=== PATIENT | male | born 1955 | race American Indian/Alaskan Native ===

== ENCOUNTER 2017-08-22 09:02 | Emergency (ER) | payer SELFPAY ==
[2017-08-22 09:52] VITALS: BP 139/84
--- NOTE | 2017-08-22 11:08 | Emergency Department Report ---
- General Chief complaint: Extremity Injury, Upper Stated complaint: WARTS ON HAND BOTH Time Seen by Provider: 08/22/17 10:46 Source: patient Mode of arrival: Ambulatory Limitations: No Limitations - History of Present Illness Initial comments: This is a 62-year-old male nontoxic, well nourished in appearance, no acute signs of distress presents to the ED with c/o of bilateral rash that is scaly and itching 1 year of the hands. 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 Patient denies any fever, chills, nausea, vomiting, chest pain, short of breath, headache, stiff neck, numbness or tingling. Patient denies any joint redness or joint swelling. Denies any allergies or significant past medical history. MD complaint: rash -: year(s) (1) Location: L hand, R hand Severity: mild Severity scale (0 -10): 0 Consistency: constant Improves with: none Worsens with: none Associated symptoms: itching Treatments Prior to Arrival: none - Related Data Previous Rx's Medication Instructions Recorded Last Taken Type Clotrimazole 1% [Lotrimin 1%] 15 gm TP BID #1 tube 08/22/17 Unknown Rx diphenhydrAMINE [Benadryl CAP] 25 mg PO Q6HR PRN #20 capsule 08/22/17 Unknown Rx Allergies Allergy/AdvReac Type Severity Reaction Status Date / Time No Known Allergies Allergy Unverified 08/22/17 09:48 Abscess Boil HPI - HPI Chief Complaint: Extremity Injury, Upper Stated Complaint: WARTS ON HAND BOTH Time Seen by Provider: 08/22/17 10:46 Home Medications: Previous Rx's Medication Instructions Recorded Last Taken Type Clotrimazole 1% [Lotrimin 1%] 15 gm TP BID #1 tube 08/22/17 Unknown Rx diphenhydrAMINE [Benadryl CAP] 25 mg PO Q6HR PRN #20 capsule 08/22/17 Unknown Rx Allergies/Adverse Reactions: Allergies Allergy/AdvReac Type Severity Reaction Status Date / Time No Known Allergies Allergy Unverified 08/22/17 09:48 ED Review of Systems ROS: Stated complaint: WARTS ON HAND BOTH Other details as noted in HPI Constitutional: denies: chills, fever Eyes: denies: eye pain, eye discharge, vision change ENT: denies: ear pain, throat pain Respiratory: denies: cough, shortness of breath, wheezing Cardiovascular: denies: chest pain, palpitations Endocrine: no symptoms reported Gastrointestinal: denies: abdominal pain, nausea, diarrhea Genitourinary: denies: urgency, dysuria Musculoskeletal: denies: back pain, joint swelling, arthralgia Skin: denies: rash, lesions Neurological: denies: headache, weakness, paresthesias Psychiatric: denies: anxiety, depression Hematological/Lymphatic: denies: easy bleeding, easy bruising ED Past Medical Hx - Past Medical History Previous Medical History?: No Additional medical history: ETOH abuse - Surgical History Past Surgical History?: No - Social History Smoking Status: Current Every Day Smoker Substance Use Type: Marijuana - Medications Home Medications: Home Medications Medication Instructions Recorded Confirmed Last Taken Type Clotrimazole 1% [Lotrimin 1%] 15 gm TP BID #1 tube 08/22/17 Unknown Rx diphenhydrAMINE [Benadryl CAP] 25 mg PO Q6HR PRN #20 capsule 08/22/17 Unknown Rx ED Physical Exam - General Limitations: No Limitations General appearance: alert, in no apparent distress - Head Head exam: Present: atraumatic, normocephalic - Eye Eye exam: Present: normal appearance - ENT ENT exam: Present: mucous membranes moist - Neck Neck exam: Present: normal inspection - Respiratory Respiratory exam: Present: normal lung sounds bilaterally. Absent: respiratory distress - Cardiovascular Cardiovascular Exam: Present: regular rate, normal rhythm. Absent: systolic murmur, diastolic murmur, rubs, gallop - GI/Abdominal GI/Abdominal exam: Present: soft, normal bowel sounds - Rectal Rectal exam: Present: deferred - Extremities Exam Extremities exam: Present: normal inspection - Back Exam Back exam: Present: normal inspection - Neurological Exam Neurological exam: Present: alert, oriented X3 - Psychiatric Psychiatric exam: Present: normal affect, normal mood - Skin Skin exam: Present: warm, dry, intact, normal color, rash, other (scaly rash with erythema and white colored to bilateral palms) ED Course Vital Signs 08/22/17 09:49 Temperature 98.7 F Pulse Rate 60 Respiratory 16 Rate Blood Pressure 139/84 O2 Sat by Pulse 98 Oximetry - Reevaluation(s) Reevaluation #1: 06/06/18 11:08 Patient is speaking in full sentences with no signs of distress noted. Critical care attestation.: If time is entered above; I have spent that time in minutes in the direct care of this critically ill patient, excluding procedure time. ED Disposition Clinical Impression: Tinea corporis Disposition: DC-01 TO HOME OR SELFCARE Is pt being admited?: No Does the pt Need Aspirin: No Condition: Stable Instructions: Tinea Corporis (ED) Additional Instructions: Follow-up with a primary care doctor in 3-5 days or if symptoms worsen and continue return to emergency room as soon as possible. Prescriptions: Clotrimazole 1% [Lotrimin 1%] 15 gm TP BID #1 tube diphenhydrAMINE [Benadryl CAP] 25 mg PO Q6HR PRN #20 capsule PRN Reason: Itching Referrals: PRIMARY CARE, [Primary Care Provider] - 3-5 Days JERMAIN PABLO MD [Staff Physician] - 3-[address] [facility] [Outside] - 3-5 Days [facility] [Outside] - 3-5 Days Forms: Work/School Release Form(ED)
== END 2017-08-22 11:58 | disposition home or self-care (01) ==
LOC: ED 09:02
DX: B35.4 Tinea corporis (principal); F17.200 Nicotine dependence, unspecified, uncomplicated; F12.10 Cannabis abuse, uncomplicated; F10.10 Alcohol abuse, uncomplicated
CPT/HCPCS: 99281

== ENCOUNTER 2017-09-03 10:45 | Emergency (ER) | payer OTHER ==
[2017-09-03 11:27] VITALS: BP 147/83
--- NOTE | 2017-09-03 14:07 | Emergency Department Report ---
Chief Complaint: Skin Rash Stated Complaint: HAND FUNGUS Time Seen by Provider: 09/03/17 13:57 - HPI History of Present Illness: 62-year-old [place] male presents to the emergency department with complaint of some dry, scaly rash to the bilateral hands including the palms as been going on for the past 3 weeks. He was seen here previously and diagnosed with some type of a fungal infection and placed on antifungal cream. He says that it has not improved. 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 He says that at the end of the day his hands get very sweaty and the rash looks even worse. He tried follow-up with a technical solutions director this morning but says that particular technical solutions director was out of business. - ROS Review of Systems: Positive for rash Negative for fever, nausea, vomiting - Exam Vital Signs: Vital Signs 09/03/17 11:25 Temperature 98.3 F Pulse Rate 58 L Respiratory 16 Rate Blood Pressure 147/83 O2 Sat by Pulse 99 Oximetry Physical Exam: Patient has a dry scaly rash to the bilateral hands including the palms. No current bleeding, weeping or drainage. MSE screening note: Focused history and physical exam performed. Due to findings the following was ordered: No labs necessary at this time. No imaging necessary. ED Disposition for MSE Condition: Stable Referrals: PRIMARY CARE, [Primary Care Provider] - 3-5 Days
--- NOTE | 2017-09-03 14:12 | Emergency Department Report ---
ED Rash HPI - HPI Chief Complaint: Skin Rash Stated Complaint: HAND FUNGUS Time Seen by Provider: 09/03/17 13:57 Duration: 3 weeks Location: Upper Extremities Suspected Cause: Unknown Rash Symptoms: Yes Itching, No Facial Swelling, No Tongue/Oral Swelling, No Breathing Difficulties, No Choking Sensation, No Wheezing/Dyspnea, No Peeling, No Blistering, No Fever, No Lightheaded, No Malaise, No Myalgias Severity: mild Other History: This is a 62-year-old male known to me nontoxic, well nourished in appearance, no acute signs of distress presents to the ED with c/o of bilateral rash that is scaly and itching 1 year of the hands. Patient stated that medication that was prescribed during the pervious visit helped a little but not a lot. Patient stated that RN gave him refill for dermoatologist but patient stated that they were closed. 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 Patient denies any fever, chills, nausea, vomiting, chest pain, short of breath, headache, stiff neck, numbness or tingling. Patient denies any joint redness or joint swelling. Denies any allergies or significant past medical history. ED Review of Systems ROS: Stated complaint: HAND FUNGUS Other details as noted in HPI Constitutional: denies: chills, fever Eyes: denies: eye pain, eye discharge, vision change ENT: denies: ear pain, throat pain Respiratory: denies: cough, shortness of breath, wheezing Cardiovascular: denies: chest pain, palpitations Endocrine: no symptoms reported Gastrointestinal: denies: abdominal pain, nausea, diarrhea Genitourinary: denies: urgency, dysuria Musculoskeletal: denies: back pain, joint swelling, arthralgia Skin: rash. denies: lesions Neurological: denies: headache, weakness, paresthesias Psychiatric: denies: anxiety, depression Hematological/Lymphatic: denies: easy bleeding, easy bruising ED Past Medical Hx - Past Medical History Additional medical history: ETOH abuse - Social History Smoking Status: Never Smoker Substance Use Type: Alcohol - Medications Home Medications: Home Medications Medication Instructions Recorded Confirmed Last Taken Type Clotrimazole 1% [Lotrimin 1%] 15 gm TP BID #1 tube 08/22/17 Unknown Rx diphenhydrAMINE [Benadryl CAP] 25 mg PO Q6HR PRN #20 capsule 08/22/17 Unknown Rx Clotrimazole 1% [Lotrimin 1%] 15 gm TP BID #1 tube 09/03/17 Unknown Rx Prednisone [predniSONE 10 mg 10 mg PO .TAPER #1 tab.ds.pk 09/03/17 Unknown Rx (6-Day Pack, 21 Tabs)] Rash Exam - Exam General: Vital signs noted. No distress. Alert and acting appropriately. HEENT: No Periorbital Edema, No Conjuctival Injection, No Chemosis, No Perioral Edema, No Tongue Edema, No Uvular Edema, No Compromised Airway, No Drooling Lungs: Yes Good Air Exchange (Normal Breath Sounds), No Wheezes, No Ronchi, No Stridor, No Cough, No Labored Respirations, No Retractions, No Use of Accessory Muscles, No Other Abnormal Lung Sounds Heart: Yes Regular, No Murmur Skin: Yes Other (scaly, erythema, with itching to bilateral hands), No Urticarial Rash, No Maculopapular Rash, No Morbilliform rash, No Bulla(e), No Excoriations, No Weeping, No Tenderness, No Erythema, No Edema, No Encrustations Other: Positive: Abdomen Normal, Neurologic Normal, Musculoskeletal Normal ED Course Vital Signs 09/03/17 11:25 Temperature 98.3 F Pulse Rate 58 L Respiratory 16 Rate Blood Pressure 147/83 O2 Sat by Pulse 99 Oximetry - Reevaluation(s) Reevaluation #1: 09/03/17 14:20 Patient is speaking in full sentences with no signs of distress noted. - Consultations Consultation #1: 09/03/17 14:20 Patient has been consulted with Dr. Beckwith about patient history, physical exam, and examined and screened patient and agrees to ED plan of care and discharge plan of care. ED Medical Decision Making - Medical Decision Making I refer patient to the insurance account representative. I will start prednisone Dosepak as well as represcribed antifungal ointment. At time of discharge, the patient does not seem toxic or ill in appearance. No acute signs of distress noted. Patient agrees to discharge treatment plan of care. No further questions noted by the patient. Critical care attestation.: If time is entered above; I have spent that time in minutes in the direct care of this critically ill patient, excluding procedure time. ED Disposition Clinical Impression: Tinea corporis Disposition: DC-01 TO HOME OR SELFCARE Is pt being admited?: No Does the pt Need Aspirin: No Condition: Stable Instructions: Prednisone (By mouth) Additional Instructions: Follow-up with a insurance account representative doctor in 3-5 days or if symptoms worsen and continue return to emergency room as soon as possible. [facility] [place] Address: [address] [place] [address] Hours: Sunday 9AM5PM Sunday 9AM5PM Sunday 9AM5PM 9AM5PM Sunday 9AM5PM Sunday Closed Sunday Closed Prescriptions: Clotrimazole 1% [Lotrimin 1%] 15 gm TP BID #1 tube Prednisone [predniSONE 10 mg (6-Day Pack, 21 Tabs)] 10 mg PO .TAPER #1 tab.ds.pk Referrals: PRIMARY CAREMD [Primary Care Provider] - 3-5 Days JERMAIN PABLO MD [Staff Physician] - 3-5 Days [facility] [Outside] - 3-5 Days [facility] [Outside] - 3-5 Days Forms: Work/School Release Form(ED)
== END 2017-09-03 14:30 | disposition home or self-care (01) ==
LOC: ED 10:45
DX: B35.4 Tinea corporis (principal)
CPT/HCPCS: 99282